=== PATIENT | female | born 1955 | race Caucasian/White ===

== ENCOUNTER → 2024-03-28 09:46 | Outpatient (REF) | payer MEDICARE, BC, SELFPAY ==
[2024-03-28 20:11] LABS: CA 125 < 5.5 U/mL (0-35)
== END ==
LOC: HWLAB 09:46
PROVIDERS: ATTENDING PHYSICIAN Student in an Organized Health Care Education/Training Program; FAMILY PHYSICIAN Family Medicine; REFERRING PHYSICIAN Obstetrics & Gynecology
DX: C56.2 Malignant neoplasm of left ovary (principal)
CPT/HCPCS: 36415; 86304

== ENCOUNTER → 2024-09-01 09:14 | Outpatient (REF) | payer MEDICARE, BC, SELFPAY | LOC: HWWDC 09:14 | PROVIDERS: ATTENDING PHYSICIAN Obstetrics & Gynecology; FAMILY PHYSICIAN Internal Medicine | DX: Z12.31 Encounter for screening mammogram for malignant neoplasm of breast (principal) | CPT/HCPCS: 77063; 77067 ==

== ENCOUNTER → 2024-09-27 09:51 | Outpatient (REF) | payer MEDICARE, BC, SELFPAY ==
[2024-09-27 15:41] LABS: CA 125 < 5.5 U/mL (0-35)
== END ==
LOC: HWLAB 09:51
PROVIDERS: ATTENDING PHYSICIAN Obstetrics & Gynecology; FAMILY PHYSICIAN Family Medicine
DX: C56.2 Malignant neoplasm of left ovary (principal)
CPT/HCPCS: 36415; 86304